=== PATIENT | male | born 1975 | race Hispanic/Latino ===

== ENCOUNTER 2017-02-25 09:19 | Observation (INO) | payer BC ==
--- NOTE | 2017-02-25 09:52 | ED PDOC ---
Arrival/HPI - General Chief Complaint: Back Pain Time Seen by Provider: 02/25/17 09:39 Historian: Patient - History of Present Illness Narrative History of Present Illness (Text): 02/25/17 09:52 T Past Medical History - Infectious Disease Hx of Infectious Diseases: None - Tetanus Immunization Tetanus Immunization: Unknown - Cardiac Hx Cardiac Disorders: Yes Hx Hypertension: Yes - Pulmonary Hx Respiratory Disorders: No - Neurological Hx Neurological Disorder: No - HEENT Hx HEENT Disorder: No - Renal Hx Renal Disorder: No - Endocrine/Metabolic Hx Endocrine Disorders: No - Hematological/Oncological Hx Blood Disorders: No - Integumentary Hx Dermatological Disorder: No - Musculoskeletal/Rheumatological Hx Musculoskeletal Disorders: Yes (Perthes Disease) Hx Falls: Yes - Gastrointestinal Hx Gastrointestinal Disorders: No - Genitourinary/Gynecological Hx Genitourinary Disorders: No - Psychiatric Hx Psychophysiologic Disorder: No Hx Depression: No Hx Emotional Abuse: No Hx Physical Abuse: No Hx Substance Use: No - Surgical History Hx Orthopedic Surgery: Yes (left hip) - Anesthesia Hx Anesthesia Reactions: Yes - Suicidal Assessment Feels Threatened In Home Enviroment: No Family/Social History Smoking Status: Never Smoked Hx Alcohol Use: No Hx Substance Use: No Hx Substance Use Treatment: No Allergies/Home Meds Allergies/Adverse Reactions: Allergies naproxen [From Aleve] Allergy (Verified 02/25/17 09:34) ANAPHYLAXIS strawberries Allergy (Uncoded 02/25/17 09:32) ANAPHYLAXIS Home Medications: Home Meds Medication Instructions Recorded Confirmed Ibuprofen [Advil] 400 mg PO Q6 PRN 08/15/14 02/25/17 Ciprofloxacin [Cipro] 500 mg PO BID 02/25/17 02/25/17 Cyclobenzaprine [Flexeril] 10 mg PO HS 02/25/17 02/25/17 Pregabalin [Lyrica] 75 mg PO DAILY 02/25/17 02/25/17 Tamsulosin [Flomax] 0.4 mg PO DAILY 02/25/17 02/25/17 Zolpidem Tartrate [Ambien] 10 mg PO HS 02/25/17 02/25/17 traMADol [Ultram] 50 mg PO BID 02/25/17 02/25/17 Disposition/Present on Arrival - Present on Arrival History of DVT/PE: No History of Uncontrolled Diabetes: No Urinary Catheter: No History of Decub. Ulcer: No History Surgical Site Infection Following: None - Disposition Referrals: PCP,NO [Primary Care Provider] - Follow up with primary
[2017-02-25] MEDS ORDERED: Sodium Chloride 0.9% 1,000 ML IV STA (10:00)
[2017-02-25] MEDS ORDERED: Morphine 4 mg/ml ISec IVP STA (10:00)
[2017-02-25 10:14] LABS: BASO # 0.01 K/mm3 (0.0-2.0); BASO % 0.1 % (0.0-3.0); EOS # 0.2 (0.0-0.7); EOS % 1.6 % (1.5-5.0); GRAN # 8.81 (1.4-6.5); GRAN % 83.2 % (50.0-68.0); HEMATOCRIT 38.3 % (42.0-52.0); LYMPH # 0.7 (1.2-3.4); MEAN CELL VOLUME 78.3 fl (80.0-105.0); MEAN CORPUSCULAR HGB CONC 35.8 g/dl (31.0-37.0); MEAN PLATELET VOLUME 9.3 fl (7.0-11.0); MONO # 0.9 (0.1-0.6); MONO % 8.1 % (1.0-6.0); PH,URINE 5.5 (4.7-8.0); RED CELL DISTRIBUTION WIDTH 13.7 % (11.5-14.5); URINE BILIRUBIN SMALL (NEGATIVE); URINE BLOOD LARGE (NEGATIVE); URINE GLUCOSE (UA) NEGATIVE (NEGATIVE); URINE KETONE NEGATIVE (NEGATIVE); URINE LEUKOCYTE ESTERASE NEGATIVE Leu/uL (NEGATIVE); URINE PROTEIN TRACE mg/dL (<30 mg/dL); URINE UROBILINOGEN 0.2 E.U./dL (<1 E.U./dL); WHITE BLOOD COUNT 10.6 10^3/ul (4.5-11.0)
[2017-02-25 10:23] LABS: URINE APPEARANCE SL CLOUDY (CLEAR); URINE COLOR YELLOW (YELLOW)
[2017-02-25 10:25] LABS: INR 0.99 (0.93-1.08); PARTIAL THROMBOPLASTIN TIME 27.5 Seconds (23.7-30.8)
[2017-02-25 10:27] LABS: URINE WBC 0 - 2 /hpf (0-6)
[2017-02-25 10:31] LABS: ALB/GLOB RATIO 1.5 (1.1-1.8); ALKALINE PHOSPHATASE 105 U/L (38-126); ALT/SGPT 29 U/L (7-56); AST/SGOT 17 U/L (17-59); BILIRUBIN,TOTAL 0.9 mg/dL (0.2-1.3); BLOOD UREA NITROGEN 22 mg/dL (7-21); CALCIUM 9.2 mg/dL (8.4-10.5); CARBON DIOXIDE 26 mmol/L (21-33); CHLORIDE 102 mmol/L (98-107); GFR AFRICAN-AMERICAN 54; GLUCOSE,RANDOM 108 mg/dL (70-110); LIPASE 61 U/L (23-300); POTASSIUM 4.3 mmol/L (3.6-5.0); SODIUM 138 mmol/L (132-148); TOTAL PROTEIN 6.5 g/dL (5.8-8.3)
[2017-02-25 10:35] LABS: AMYLASE < 30 U/L (35-125)
[2017-02-25 10:39] LABS: VENOUS BLOOD GAS BASE EXCESS 2.7 mmol/L (0.0-2.0); VENOUS BLOOD PH 7.59 (7.32-7.43)
[2017-02-25] MEDS ORDERED: Morphine 2 mg/ml ISec IVP STA (10:40)
[2017-02-25 10:44] LABS: TROPONIN I < 0.01 ng/mL
[2017-02-25] MEDS ORDERED: diaZEpam 10 mg/2 ml Inj IVP ONE (11:10)
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
[2017-02-25] MEDS ORDERED: HYDROmorphone 2 mg/ml ISec IVP STA (12:06)
[2017-02-25] MEDS ORDERED: cefTRIAXone 1 gm 1 GM/100 ML BAG IVPB STA (12:09)
--- NOTE | 2017-02-25 12:45 | RAD ---
HISTORY: history of right sided kidney stone distal ureter COMPARISON: No prior. FINDINGS: BOWEL: Unremarkable bowel gas pattern. No bowel obstruction. No masses or abnormal intra-abdominal calcifications. BONES: Lumbar fixation with pedicle screws at L4-5. OTHER FINDINGS: None. IMPRESSION: No active disease.
[2017-02-25] MEDS ORDERED: HYDROmorphone 2 mg/ml ISec IVP PRN (14:27)
[2017-02-25] MEDS ORDERED: Morphine 4 mg/ml ISec IVP PRN (14:38)
[2017-02-25] MEDS: Sodium Chloride 0.45% 1,000 ML IV SCH (14:54)
[2017-02-25 16:33] VITALS: BMI 49.3
[2017-02-25] MEDS ORDERED: Pneumococcal 23-Valent Vaccine IM ONE (16:33)
[2017-02-25] MEDS: Morphine 4 mg/ml ISec IVP PRN ×2 (17:55→21:44)
[2017-02-26] MEDS: Morphine 4 mg/ml ISec IVP PRN ×5 (01:12→21:03)
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
[2017-02-26 06:31] LABS: BASO # 0.01 K/mm3 (0.0-2.0); BASO % 0.1 % (0.0-3.0); EOS # 0.2 (0.0-0.7); EOS % 1.9 % (1.5-5.0); GRAN # 7.57 (1.4-6.5); GRAN % 77.7 % (50.0-68.0); HEMATOCRIT 36.8 % (42.0-52.0); LYMPH % 9.7 % (22.0-35.0); MEAN CELL VOLUME 79.1 fl (80.0-105.0); MEAN CORPUSCULAR HEMOGLOBIN 27.5 pg (25.0-35.0); MEAN CORPUSCULAR HGB CONC 34.8 g/dl (31.0-37.0); MEAN PLATELET VOLUME 9.6 fl (7.0-11.0); MONO % 10.6 % (1.0-6.0); RED CELL DISTRIBUTION WIDTH 13.8 % (11.5-14.5); WHITE BLOOD COUNT 9.8 10^3/ul (4.5-11.0)
[2017-02-26 06:41] LABS: ALB/GLOB RATIO 1.2 (1.1-1.8); BILIRUBIN,TOTAL 0.8 mg/dL (0.2-1.3); CALCIUM 8.3 mg/dL (8.4-10.5); POTASSIUM 4.1 mmol/L (3.6-5.0); TOTAL PROTEIN 6.5 g/dL (5.8-8.3)
--- NOTE | 2017-02-26 08:53 | CARD ---
APPROVED REPORT EKG Measurement Heart [id number] <Conclusion> Sinus rhythm with trigeminal PVC's, new LAD PRWP V 1 - 6 Electrical artifact
[2017-02-26] MEDS ORDERED: cefTRIAXone 1 gm 1 GM/100 ML BAG IVPB SCH (10:00)
[2017-02-26] MEDS ORDERED: HYDROmorphone 0.5 mg/0.5 ml ISec IVP PRN ×2 (10:43→12:08)
[2017-02-26] MEDS ORDERED: Lactated Ringer's 1,000 ML IV SCH ×2 (10:45→12:15)
[2017-02-26] MEDS ORDERED: Iohexol 240 (50 ml) ONE (11:10)
[2017-02-26] MEDS ORDERED: Lidocaine 2% Jelly (Uro-Jet) ONE (11:10)
[2017-02-26] MEDS ORDERED: Midazolam 2 MG/2 ML VIAL ONE (11:28)
[2017-02-26] MEDS ORDERED: cefTRIAXone (Rocephin) 1 gm Inj ONE (11:29)
[2017-02-26] MEDS ORDERED: Propofol 10 mg/ml Inj (20 ML) ONE (11:29)
--- NOTE | 2017-02-26 14:53 | OP ---
PROCEDURE DATE: 02/26/2017 PREOPERATIVE DIAGNOSES: Right ureteral calculus and renal colic. POSTOPERATIVE DIAGNOSES: Right ureteral calculus and renal colic. PROCEDURE: Cystoscopy, right retrograde pyelogram, and insertion of right ureteral stent. ATTENDING SURGEON: Dr. Lg Prescott. ANESTHESIA: General. SPECIMENS: None. DRAINS: A 6 x 28 right ureteral stent. COMPLICATIONS: There were none. OPERATIVE FINDINGS: After informed consent was obtained, the patient was taken to operative room and placed on operating table. Anesthesia was administered. The patient was placed in dorsal lithotomy position and prepped and draped in usual sterile fashion. A 21-Mexican cystoscope was placed in the patient's urethra,advanced proximally under direct vision until the bladder was entered. A full survey inspection of bladder was then performed which revealed no stones, tumors, or foreign body out of the bladder. Both ureteral orifices were visualized. The left ureteral orifice appeared within normal limits. The right ureteral orifice was heaped up and edematous. At this point, a [place] catheter was introduced through the cystoscope. It was able to be guided into the right ureteral orifice. A right retrograde pyelogram was then performed by instilling contrast through the [place] catheter into the right ureter doing real-time fluoroscopy. The right retrograde pyelogram appeared to show a filling defect in the distal ureter. The ureter was mildly dilated above this. There was [id number] hydronephrosis noted. At this point, a sensor wire was obtained. The sensor wire was passed through the open-ended ureteral catheter. It was able to be guided up the ureter under fluoroscopic guidance until it coiled in the upper collecting system. At this point, a 6 x 28 stent was obtained. It was passed through the cystoscope over the wire and into the right ureter. The stent was advanced until it was then at the appropriate position. When the stent was in proper position, the guidewire was removed. A coil was seen in the renal pelvis on fluoroscopy, a coil was seen on bladder on cystoscopy. At this point the procedure was completed, the bladder was drained and cystoscope was removed. The patient tolerated procedure well and was taken to the recovery room awake and stable condition. Lg Prescott MD
[2017-02-26] MEDS: Sodium Chloride 0.45% 1,000 ML IV SCH (15:10)
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
--- NOTE | 2017-02-26 19:46 | PN ---
SUBJECTIVE: The patient is 41 years old seen and examined after he agreed to stent placement. He states he has no pain right now. Feeling nauseous and hungry at the same time. PHYSICAL EXAMINATION VITAL SIGNS: He is afebrile. Pulse 86, respirations 18, blood pressure 144/89. LUNGS: Bilateral fair air flow. No rhonchi or crackles. HEART: S1 and S2 audible. ABDOMEN: Soft, nontender, no rebound, no guarding. NEUROLOGIC: He is awake and alert, able to communicate. LABORATORY EXAM: WBC is 9.8, hemoglobin 12.8, hematocrit 36.8, platelets of 215. Chemistry: Sodium 136, potassium 4.1, chloride 102, CO2 of 25, BUN 16, creatinine 1.6, blood sugar of 92. ASSESSMENT: 1. Right renal colic. 2. Nephrolithiasis. 3. Status post ureteral stent placement. 4. Bony degenerative disk disease. PLAN: We will advance his diet. Continue on IV fluids and Lasix as needed. Continue on antibiotics. If the patient remains stable, discharge plan in a.m. Kelby Moulton MD
[2017-02-26 21:19] VITALS: O2SAT 98
[2017-02-27] MEDS: Sodium Chloride 0.45% 1,000 ML IV SCH (04:41)
[2017-02-27 07:46] VITALS: BP 99/64; PULSE 82; RESP 20; TEMP 98.2
[2017-02-27 11:45] LABS: ALB/GLOB RATIO 1.3 (1.1-1.8); ALKALINE PHOSPHATASE 91 U/L (38-126); ALT/SGPT 38 U/L (7-56); AST/SGOT 23 U/L (17-59); BILIRUBIN,TOTAL 0.5 mg/dL (0.2-1.3); BLOOD UREA NITROGEN 13 mg/dL (7-21); CALCIUM 8.7 mg/dL (8.4-10.5); CARBON DIOXIDE 28 mmol/L (21-33); CHLORIDE 101 mmol/L (98-107); GFR AFRICAN-AMERICAN > 60; GLUCOSE,RANDOM 93 mg/dL (70-110); POTASSIUM 4.2 mmol/L (3.6-5.0); SODIUM 137 mmol/L (132-148); TOTAL PROTEIN 6.6 g/dL (5.8-8.3)
--- NOTE | 2017-02-27 12:24 | DS ---
HISTORY OF PRESENT ILLNESS: The patient is a 41-year-old, who came in with right flank pain. The patient has been having intermittent flank pain for the last couple of weeks. Has been to medical center multiple times. So, yesterday had similar symptom. So, he came to emergency room, underwent cystoscopy and ureter stent placement. Seems to be doing little better, still has pain. He has complained of burning upon urination at times. No fever or chills. No nausea or fever. Eating and tolerating. PHYSICAL EXAMINATION: VITAL SIGNS: He is afebrile, pulse 82, respirations 20, blood pressure 99/64. LUNGS: Bilateral fair airflow. No rhonchi or crackles. HEART: S1 and S2, audible. ABDOMEN: Soft, nontender. No rebound. No guarding. NEUROLOGIC: The patient is awake, alert, communicative, ambulatory. LABORATORY DATA: CMP is pending. ASSESSMENT AND PLAN: 1. Right renal colic. 2. Status post cystoscopy and ureteral stent placement. PLAN: The patient is clinically stable. His pain seems to be improving. Although he has renal insufficiency, I ordered stat BMP to follow his creatinine and continue his IV fluid. Continue him on antibiotic. The patient has Cipro at home. Reach out to urologist if that is appropriate to continue as an outpatient. He already has tramadol at home for pain management. If it is cleared by urologist can be discharged today later on. Kelby Moulton MD
--- NOTE | 2017-03-01 10:08 | PN ---
DATE: 02/26/2017 SUBJECTIVE: The patient is seen postoperatively in the recovery room. Status post cystoscopy with right stent placement for obstructing right ureteral calculus. He is afebrile. Vital signs stable. IMPRESSION AND PLAN: The patient will be observed for now to see if his pain has improved. If the patient is medically stable, he can be discharged home either later tonight or tomorrow on antibiotics and pain medication. He will follow up with us in the office in 1 week and he will need to be scheduled for a stent removal, possible ureteroscopy, laser lithotripsy and stone removal. Lg Prescott MD
--- NOTE | 2017-03-01 11:23 | RAD ---
PROCEDURE: Fluoroscopy up to 1 hour HISTORY: STENT INSERTION COMPARISON: TECHNIQUE: Fluoroscopy was provided in the operating room. 47 seconds of fluoroscopy time was used. Seven images were submitted FINDINGS: The study shows placement of a right ureteral stent. IMPRESSION: As above
== END 2017-02-27 13:54 | disposition home or self-care (01) ==
LOC: ED 09:19 → ERH 12:36 → 5RNO 14:05
PROVIDERS: ADMIT Internal Medicine; ATTEND Internal Medicine
DX: N13.2 Hydronephrosis with renal and ureteral calculous obstruction (principal); M51.9 Unspecified thoracic, thoracolumbar and lumbosacral intervertebral disc disorder; E66.01 Morbid (severe) obesity due to excess calories; Z68.42 Body mass index [BMI] 45.0-49.9, adult
CPT/HCPCS: 36415; 52332; 74000; 80053; 81001; 82150; 82550; 82803; 83615; 83690; 84484; 85025; 85610; 85730; 93005; 96361; 96365; 96375; 96376; 99285; C1758; C1769; C2625; G0378; J0696; J1170; J2250; J2270; J2405; J2704; J3010; J3360; J7030; J7040; J7120; Q9966

== ENCOUNTER 2017-03-08 08:43 | Day surgery (SDC) | payer BC ==
[2017-03-04 12:56] VITALS: BMI 48.0
[2017-03-08] MEDS ORDERED: cefTRIAXone (Rocephin) 1 gm Inj ONE (10:58)
[2017-03-08] MEDS ORDERED: Iohexol 240 (50 ml) ONE (10:59)
[2017-03-08] MEDS ORDERED: Lidocaine 2% Jelly (Uro-Jet) ONE (10:59)
[2017-03-08] MEDS ORDERED: Propofol 10 mg/ml Inj (20 ML) ONE (11:20)
[2017-03-08] MEDS ORDERED: Lidocaine 1% Inj (20ml) ONE (11:21)
[2017-03-08] MEDS ORDERED: Sevoflurane - Inhalation Anesthetic Liq (250 ml) ONE (11:48)
[2017-03-08] MEDS ORDERED: HYDROmorphone 0.5 mg/0.5 ml ISec IVP PRN (12:23)
[2017-03-08] MEDS ORDERED: Lactated Ringer's 1,000 ML IV SCH (12:30)
--- NOTE | 2017-03-08 13:16 | RAD ---
PROCEDURE: Fluoroscopy up to 1 hour HISTORY: STENT REMOVAL / RETROGRADE PYELOGRAM (RIGHT) COMPARISON: TECHNIQUE: Fluoroscopy was provided in the operating room. 126.8 seconds of fluoro time were used. Sixteen images were submitted. FINDINGS: The study shows removal of the right ureteral stent. IMPRESSION: As above
[2017-03-08 14:25] VITALS: BP 131/76; PULSE 81; RESP 18; TEMP 98.8; O2SAT 99
--- NOTE | 2017-03-08 17:04 | OP ---
DATE OF PROCEDURE: 03/08/2017 PREOPERATIVE DIAGNOSIS: Right ureteral calculus. POSTOPERATIVE DIAGNOSIS: Right ureteral calculus. PROCEDURES PERFORMED: Cystoscopy, removal of right ureteral stent, right ureteroscopy, right retrograde pyelogram. SURGEON: Dr. Lg Prescott. ANESTHESIA: General. SPECIMENS: There were none. DRAINS: There were none. COMPLICATIONS: None. DESCRIPTION OF PROCEDURE: After informed consent was obtained, the patient was taken to the operating room and placed on the operating table. Anesthesia was administered. The patient was then placed in a dorsal lithotomy position and prepped and draped in usual sterile fashion. A 21-K[place] cystoscope was placed in the patient's urethra and advanced proximally under direct vision until the bladder was entered. A full survey inspection of the bladder was then performed which revealed no stones or tumors of the bladder. There was a stent noted exiting from the right ureteral orifice. At this point, a sensor wire was obtained. The sensor wire was passed through the cystoscope. It was able to be guided into the ureteral orifice and up the right ureter past the stent on fluoroscopic guidance. At this point, the cystoscope was then re-passed and a grasping forceps was then placed. There appeared to be a small calculus just inside the orifice adjacent to the stent. The stent was then withdrawn through the urethral meatus. Fluoroscopy was done. The wire remained in place and the stent was then grasped and removed in its entirety. At this point, a 7.5-Kyrgy[place] semi-rigid ureteroscope was obtained. It was passed under direct vision into the bladder and was guided into the right ureteral orifice. The stone was no longer seen in this position. The ureteroscope was able to be easily advanced into the mid ureter. There were no stones or other abnormalities seen. The scope could not easily be advanced into the upper ureter given the patient's anatomy. At this point, decision was made to hold further ureteroscopy as it appeared that the stone had likely passed when the stent was removed. The ureteroscope was withdrawn under direct vision. The cystoscope was then re-passed while back loading guidewire. A 5-K[place] open-ended ureteral catheter was advanced over the wire into the distal ureter and the wire was then removed. Contrast was then instilled into the system. No suspicious filling defects were noted in either the distal, mid, or upper ureter. There was no overt hydronephrosis noted on views of the kidney. After the system was full, the open-ended ureteral catheter was withdrawn. On fluoroscopic vision, contrast was noted to be emptying from the renal pelvis into the ureter and down the ureter with no evidence of obstruction and entering the bladder. At this point, the procedure was completed. The bladder was drained and the cystoscope was removed. Delayed views revealed no evidence of obstruction and the kidney and ureter were draining without any evidence of obstructing calculus. The bladder was inspected. No calculi were noted; however, the patient did void spontaneously a few times during the procedure and it was likely that he passed the stone. At this point, the procedure was complete. The bladder was drained. The cystoscope was removed. The patient tolerated the procedure well and he was taken to the recovery room awake in a stable condition. Lg Prescott MD
== END 2017-03-08 14:15 | disposition home or self-care (01) ==
LOC: SDS 08:43
PROVIDERS: ATTEND Urology
DX: N20.1 Calculus of ureter (principal); E66.9 Obesity, unspecified; Z68.42 Body mass index [BMI] 45.0-49.9, adult
CPT/HCPCS: 52351; 76000; C1758; J0696; J1170; J2704; J3010; J7120 ×2; Q9966